=== PATIENT | male | born 1955 | race Caucasian/White ===

== ENCOUNTER 2020-12-20 21:34 | Emergency (ER) | payer OTHER ==
[~2020-12-20] VITALS: Ht 193 cm; Wt 112.0 kg
--- NOTE | 2020-12-20 22:05 | NUR ---
BIBS FROM HOME TO ER BED 6. AAOX4. NOT IN RESP DISTRESS, BREATHING EVEN AND UNLABORED. AMBULATORY. CAME IN FOR ELEVATED BP. UPON ASSESSMENT, PT'S BP IS NOTED @ 162/73. 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 PT WAS STARTED ON LISINOPRIL 10MG WHICH PT HAS NOT STARTED TO TAKE BECAUSE HE JUST PICKED IT UP FROM THE PX. PT APPEARS ANXIOUS AND WORRIED. AWAITING MD FOR EVAL.
--- NOTE | 2020-12-20 22:11 | NUR ---
DR. CAMARGO AT BEDSIDE
--- NOTE | 2020-12-20 22:24 | NUR ---
Patient discharged to home in stable condition. Written and verbal after care instructions given. Patient verbalizes understanding of instruction. Pt ambulatory with a steady gait. Pt teaching provided to pt regarding HBP.
[2020-12-20 22:25] VITALS: BP 162/73
== END 2020-12-20 22:25 | disposition home or self-care (01) ==
LOC: ER 21:42
DX: I10 Essential (primary) hypertension (principal)

== ENCOUNTER 2022-10-09 10:19 | Emergency (ER) | payer MEDICARE, OTHER ==
[~2022-10-09] VITALS: Ht 195.6 cm; Wt 111.1 kg
--- NOTE | 2022-10-09 10:35 | NUR ---
RECEVED PT 67 YRS MALE FROM HOME walking in c/o high bloodpressure for one week awake and alert respiration spont and easy
--- NOTE | 2022-10-09 10:55 | NUR ---
SEEN BY DR. TIMMONS
--- NOTE | 2022-10-09 11:20 | NUR ---
AKHIL #20, BLOOD DRAWN AND SENT TO LAB
--- NOTE | 2022-10-09 11:23 | NUR ---
TECH AT BEDSIDE FOR EKG
[2022-10-09 11:27] LABS: BASOPHILS % (AUTO) 0.4 % (0.0-2.0); HEMATOCRIT 42 % (39-51); HEMOGLOBIN 13.7 g/dL (13.5-17.5); LYMPHOCYTES # (AUTO) 1.5 K/uL (0.8-4.8); LYMPHOCYTES % (AUTO) 21.4 % (20.0-44.0); MEAN CORPUSCULAR HGB CONC 33 g/dl (31.0-36.0); MEAN CORPUSCULAR VOLUME 90 fL (80-96); MONOCYTES # (AUTO) 1.4 K/uL (0.1-1.30); MONOCYTES % (AUTO) 20.4 % (2.0-12.0); NEUTROPHILS # (AUTO) 3.9 K/uL (1.8-8.9); NEUTROPHILS % (AUTO) 55.8 % (43.0-81.0); PLATELET COUNT (AUTO) 285 K/uL (150-450); RED BLOOD CELL COUNT(AUTO) 4.63 MIL/uL (4.5-6.0)
[2022-10-09 11:51] LABS: ALANINE AMINOTRANSFERASE 19 U/L (12-78); ALBUMIN 3.2 g/dL (3.4-5.0); ALKALINE PHOSPHATASE 42 U/L (46-116); ASPARTATE AMINOTRANSFERASE 21 U/L (15-37); BILIRUBIN,DIRECT 0.1 mg/dL (0.0-0.2); BILIRUBIN,TOTAL 0.4 mg/dL (0.2-1.0); CALCIUM, SERUM 8.8 mg/dL (8.5-10.1); CARBON DIOXIDE 25 mmol/L (21-32); CHLORIDE 104 mmol/L (98-107); CREATININE 1.1 mg/dL (0.6-1.3); GLUCOSE 106 mg/dL (74-106); POTASSIUM 4.3 mmol/L (3.5-5.1); SODIUM SERUM 136 mmol/L (136-145); TOTAL PROTEIN, SERUM 7.2 g/dL (6.4-8.2); UREA NITROGEN, BLOOD 13 mg/dL (7-18)
[2022-10-09] MEDS ORDERED: MECL-159 PO (12:31)
--- NOTE | 2022-10-09 12:36 | NUR ---
AWAITING DIPOSITION OF PATIENT BY .
--- NOTE | 2022-10-09 12:50 | NUR ---
DINESES ANY ABDOMINALE PAIN OR SOB
--- NOTE | 2022-10-09 12:55 | NUR ---
IV removed. Catheter intact and site benign. Pressure and 4x4 applied to site. No bleeding noted.
--- NOTE | 2022-10-09 13:00 | NUR ---
Patient discharged to home in stable condition. Written and verbal after care instructions given. Patient verbalizes understanding of instruction.
[2022-10-09 13:10] VITALS: BP 153/82
[2022-10-09 13:43] LABS: BAND % (MANUAL) 1 % (0.0-5.0); LYMPHOCYTES % (MANUAL) 24 % (16-48); MONOCYTES % (MANUAL) 16 % (0-11.0); NEUTROPHILS % (MANUAL) 59 (42-76)
== END 2022-10-09 13:15 | disposition home or self-care (01) ==
LOC: ER 10:54
DX: R42 Dizziness and giddiness (principal); I10 Essential (primary) hypertension
CPT/HCPCS: 36415; 71045-TC; 80048-TC; 80076-TC; 84484-TC; 85025-TC